=== PATIENT | female | born 1965 | race Caucasian/White ===

== ENCOUNTER → 2017-03-16 | Outpatient (CLI) | payer OTHER ==
--- NOTE | 2017-03-16 18:49 | Diagnostic Imaging Report ---
EV GRAHAM~ [facility] [address] [facility] [address] [address] ~ ~ ~ ~ Report Submission Date: Mar 16, 2017 4:30:34 PM [employer]URAL [employer] CLERK Patient ~ Study Name: HERNANDEZ VASQUEZ ~ Date: Mar 16, 2017 4:12:50 PM [employer]URAL [employer] CLERK ~ Modality Type: CR Gender: F ~ Description: LOWER EXTREMITY : 69 ~ Institution: [facility] Physician: EV GRAHAM ~ ~ ~ Examination: Plain film heel. History: Discomfort. Comparison exams: None provided Findings: 2 views of the right heel/calcaneus demonstrates normal cortical margins. No fracture. ~No dislocation. No calcaneal spurs. No soft tissue irregularity. No joint effusion. Impression: No acute osseous abnormality. ~ Electronically signed on Mar 16, 2017 4:30:34 PM [employer]URAL FO[employer] CLERK by: Heriberto INFANTE
== END ==
LOC: RAD 16:00
PROVIDERS: ATTEND Physician Assistant
DX: M79.671 Pain in right foot (principal)
CPT/HCPCS: 73650